=== PATIENT | female | born 1990 | race Caucasian/White ===

== ENCOUNTER 2019-06-25 11:09 | Inpatient (IN) | payer BC ==
[2019-06-25] MEDS ORDERED: LACTATED RINGERS 1,000 ML IV ONE (11:46)
[2019-06-25] MEDS ORDERED: CITRIC ACID-SODIUM CITRATE 15 ML CUP PO ONE (11:46)
[2019-06-25] MEDS ORDERED: PENICILLIN G POTASSIUM 5,000,000 UNIT in DEXTROSE 5% IN WATER 100 ML IVPB STA ×2 (11:47)
[2019-06-25] MEDS ORDERED: LACTATED RINGERS 1,000 ML IV SCH (12:00)
[2019-06-25 12:16] LABS: Basophils % (A) 0 %; Eosinophils # (A) 0.1 k/uL (0-0.7); Eosinophils % (A) 1 %; HCT 42.3 % (34.0-46.0); HGB 13.9 gm/dL (11.4-16.0); Lymphocytes # (A) 1.9 k/uL (1.0-4.8); Lymphocytes % (A) 16 %; MCHC 32.9 g/dL (31.0-37.0); MCV 88.1 fL (80.0-100.0); Mean Platelet Volume 8.8; Monocytes # (A) 0.7 k/uL (0-1.0); Monocytes % (A) 6 %; Neutrophils # (A) 9.1 k/uL (1.3-7.7); Neutrophils % (A) 76 %; Platelet Count 238 k/uL (150-450); RDW 14.7 % (11.5-15.5); WBC 11.9 k/uL (3.8-10.6)
--- NOTE | 2019-06-25 12:17 | P.HPOB ---
History of Present Illness H&P Date: 06/25/19 Chief Complaint: My water broke yesterday at noon. This is a 28-year-old white female 1 para 0 EDC 07/05/2019 at 38-4/7 weeks' gestation. Patient presents today stating her water has been leaking and trickling since yesterday at noon. She is having rare irregular contractions. Fetus is been active throughout the . Fetus was noted to be breech in the office yesterday on examination. Past medical history is significant for migraine headaches followed by Dr. Lisa in [facility]. She also has a history of asthma, exercise-induced. Past surgical history tonsillectomy and adenoidectomy in the past. Current medications vitamins daily. ALLERGIES codeine to which reports migraine headaches. Family history significant for asthma, acid reflux, hypertension. Social history patient is never been a smoker, she denies alcohol or drug use. She is , and works for [employer]. Obstetric history is significant for blood type a negative, broke and was received. Pap smear, urine culture, hepatitis B surface antigen, HIV testing, g onorrhea and chlamydia cultures all negative. Rubella status immune. Group B strep cultures positive. On exam this is a pleasant white female 5 foot 2 inches, 196 pounds, vital signs are stable and patient is afebrile. The general physical exam is within normal limits. Chest is clear in all palmer. Infant is still breech to Peyman's maneuver and bedside checked with the ultrasound. Cervix is 4 cm dilated, 90% effaced, -2 station, small parts presenting. heart rate is consistent with reactive NST. Impression: 38-4/7 weeks intrauterine , breech presentation, ruptured membranes for 24 hours. Plan: Anesthesia will not allow me to proceed with section until 8 hours of nothing by mouth status. Patient had yogurt, granola and an Apple at 8:30 AM. We will therefore proceed at 4:30 PM. The risks, benefits and alternatives are discussed in detail. All questions answered. Review of Systems Constitutional: Reports as per HPI Past Medical History Past Medical History: Asthma Past Surgical History: Adenoidectomy, Tonsillectomy Past Psychological History: No Psychological Hx Reported Smoking Status: Never smoker Past Alcohol Use History: None Reported Past Drug Use History: None Reported Medications and Allergies Home Medications Medication Instructions Recorded Confirmed Type Iron 18 mg PO DAILY 06/25/19 06/25/19 History Magnesium 200 mg PO DAILY 06/25/19 06/25/19 History Pnv,Calcium 72/Iron/Folic Acid 1 each PO DAILY 06/25/19 06/25/19 History [ Plus Tablet] Allergies Allergy/AdvReac Type Severity Reaction Status Date / Time codeine AdvReac Nausea & Verified 06/25/19 11:45 Vomiting Exam Intake and Output 06/24/19 06/25/19 06/25/19 22:59 06:59 14:59 Other: Weight 86.636 kg See dictation under HPI please Assessment and Plan Assessment: 38-4/7 weeks intrauterine , breech presentation, positive group B strep cultures, 24 hours of ruptured membranes noted. Plan: Penicillin G prophylaxis now. Continue nothing by mouth status. Planned primary low transverse section this afternoon. Time with Patient: Less than 30
[2019-06-25] MEDS ORDERED: ONDANSETRON 4 MG/2 ML VIAL ONE (16:29)
[2019-06-25] MEDS ORDERED: MORPHINE SULFATE (PF) 0.3 MG/0.3 ML SYR ONE (16:29)
[2019-06-25] MEDS ORDERED: KETOROLAC 30 MG/ML 1 ML VIAL ONE (16:29)
[2019-06-25] MEDS ORDERED: OXYTOCIN 10 UNIT/ML 1 ML VIAL ONE (16:29)
[2019-06-25] MEDS ORDERED: NALOXONE 0.4 MG/ML 1 ML VIAL IV PRN ×2 (16:40→17:20)
[2019-06-25] MEDS ORDERED: KETOROLAC 30 MG/ML 1 ML VIAL IVP PRN (16:40)
[2019-06-25] MEDS ORDERED: NALBUPHINE 10 MG/ML (1 ML AMP) IV PRN (16:40)
[2019-06-25] MEDS ORDERED: ONDANSETRON 4 MG/2 ML VIAL IVP PRN ×2 (16:40→17:20)
[2019-06-25] MEDS ORDERED: diphenhydrAMINE 50 MG/ML 1 ML VIAL IVP PRN ×3 (16:40→17:20)
[2019-06-25] MEDS ORDERED: MORPHINE SULFATE 2 MG/ML SYRINGE IVP PRN (16:40)
[2019-06-25] MEDS ORDERED: diphenhydrAMINE 50 MG CAP PO PRN (17:20)
[2019-06-25] MEDS ORDERED: ZOLPIDEM 5 MG TAB PO PRN (17:20)
[2019-06-25] MEDS ORDERED: diphenhydrAMINE 25 MG CAP PO PRN (17:20)
[2019-06-25] MEDS ORDERED: METOCLOPRAMIDE 5 MG/ML 2 ML VIAL IVP PRN (17:20)
--- NOTE | 2019-06-25 17:20 | P.OP ---
Date of Procedure: 06/25/19 Preoperative Diagnosis: 38-4/7 weeks, breech presentation, spontaneous amniorrhexis, meconium-stained fluid. Postoperative Diagnosis: Same, liveborn female . Normal-appearing tubes ovaries and uterine corpus. Procedure(s) Performed: Primary low transverse section Anesthesia: spinal Surgeon: Alyssa Huerta Railway Switch Operator #1: Florin Thorne Estimated Blood Loss (ml): 550 IV fluids (ml): 1,000 Urine output (ml): 100 Pathology: none sent Condition: stable Disposition: PACU Operative Findings: Liveborn female , scores 8 and 9, complete breech position. 7 lbs. 3 oz., 3260 g weight. Normal-appearing tubes and ovaries bilaterally. No uterine defects. Description of Procedure: Patient is brought to the operating suite where a spinal analgesia with Du ramorph is placed without difficulty per the anesthesia staff. The appropriate timeout is performed to assure proper patient and procedural identification. Group B strep cultures are noted to be positive, and penicillin G has Dipak been received, 2 doses 4 hours apart. Aldana catheter placed to direct drainage. The abdomen is prepped and draped in usual sterile fashion. The analgesia is checke d and noted to be adequate. A low transverse skin incision is made in this is carried down through the subcutaneous tissue to the fascia. Fascia is isolated, scored, extended bilaterally with curved Schulz scissors. Peritoneum is next identified and incised, there is no bowel or bladder involvement. The bladder blade is placed over the dome of the bladder and at all times the bladder is Well from the operative field to avoid bladder and/or ureteral injury. A low transverse uterine incision is made in this is carried down through the myometrium. Upon entering the endometrial cavity a large amount of meconium- stained fluid is encountered. The incision is extended with blunt dissection. The breech is brought into the incision, sacrum anterior. Pinard maneuver is used to deliver the lower extremities. A blue towel was wrapped around the 's trunk, and a Pinard maneuver is used to deliver both upper extremities. The infant's head is delivered in a flexed position. Officially delivered a liveborn female at 1643 hours. Umbilical cord is doubly clamped and ligated, she is handed to waiting nurses for evaluation where scores of 8 and 9 at one and 5 minutes respectively are given. The placenta is delivered manually, it is inspected and noted to be intact with trivascular cord at 1644 hours. At this time the uterus is externalized and massaged. Oxytocin is given. It is swept clean with a sterile sponge to avoid any retained products of conception. The edges of the uterine incision are grasped with Alvarado clamps and the uterus is closed in a two-step fashion. First layer is running locking with 0 Vicryl suture, second layer also with 0 Vicryl in an imbricated fashion for excellent reapproximation. Both tubes and ovaries appear normal to inspection. The uterus is brought forward and the abdomen is suctioned with suction on guard. Uterus is gently placed back into the abdominal cavity. Bilateral gutters are inspected and cleaned. Uterine incision is once again noted to be clean and dry. Peritoneum is allowed to close by secondary intention. Fascia is closed in a running stitch of 0 Vicryl with over ligation in the midline. Subcutaneous tissue is irrigated, noted to be clean and dry. It is reapproximated with 3-0 Vicryl in a running fashion. 4-0 undyed Monocryl is used for final skin closure. Steri-Strips and Mastisol are applied to the wound. The uterus is massaged for a small amount of bleeding. The wound is dressed appropriately. Aldana is noted to be draining clear urine. Patient is brought back to the recovery room in very good condition with stable vital signs including a pulse of 82, blood pressure 111/64. 's weight 3260 g or 7 lbs. 3 oz. Patient and her family are allowed to begin the bonding experience in the LDR.
[2019-06-25 18:09] LABS: Basophils % (A) 0 %; Eosinophils # (A) 0.1 k/uL (0-0.7); Eosinophils % (A) 0 %; HCT 37.3 % (34.0-46.0); HGB 12.3 gm/dL (11.4-16.0); Lymphocytes # (A) 1.8 k/uL (1.0-4.8); Lymphocytes % (A) 14 %; MCH 29.6 pg (25.0-35.0); MCV 89.5 fL (80.0-100.0); Mean Platelet Volume 9.2; Monocytes # (A) 0.6 k/uL (0-1.0); Monocytes % (A) 5 %; Neutrophils # (A) 10.3 k/uL (1.3-7.7); Neutrophils % (A) 79 %; Platelet Count 199 k/uL (150-450); RBC 4.17 m/uL (3.80-5.40); RDW 14.7 % (11.5-15.5)
[2019-06-25] MEDS ORDERED: PENICILLIN G POTASSIUM 2,500,000 UNIT in DEXTROSE 5% IN WATER 100 ML IVPB SCH ×2 (20:05)
[2019-06-25] MEDS: LACTATED RINGERS 1,000 ML IV SCH (21:05)
[2019-06-25] MEDS: SENNOSIDES-DOCUSATE SODIUM 1 EACH TAB PO SCH (21:05)
[2019-06-26] MEDS ORDERED: Rhogam IMMUNE GLOBULIN 1,500 UNIT/1 ML IM ONE (01:00)
[2019-06-26] MEDS: LACTATED RINGERS 1,000 ML IV SCH ×2 (01:05→23:16)
[2019-06-26] MEDS: KETOROLAC 30 MG/ML 1 ML VIAL IVP PRN ×2 (03:33→10:19)
[2019-06-26 06:57] LABS: Basophils % (A) 0 %; Eosinophils # (A) 0.1 k/uL (0-0.7); Eosinophils % (A) 0 %; HCT 36.7 % (34.0-46.0); HGB 12.2 gm/dL (11.4-16.0); Lymphocytes # (A) 2.3 k/uL (1.0-4.8); Lymphocytes % (A) 14 %; MCH 29.5 pg (25.0-35.0); MCHC 33.1 g/dL (31.0-37.0); Mean Platelet Volume 9.3; Monocytes # (A) 0.8 k/uL (0-1.0); Monocytes % (A) 5 %; Neutrophils # (A) 12.3 k/uL (1.3-7.7); Neutrophils % (A) 78 %; Platelet Count 233 k/uL (150-450); RBC 4.13 m/uL (3.80-5.40); RDW 14.7 % (11.5-15.5); WBC 15.7 k/uL (3.8-10.6)
[2019-06-26] MEDS: SENNOSIDES-DOCUSATE SODIUM 1 EACH TAB PO SCH ×2 (07:51→20:59)
--- NOTE | 2019-06-26 07:55 | P.PN ---
Subjective Progress Note Date: 06/26/19 Principal diagnosis: Postoperative day #1 Positive flatus, ambulating. Pain well controlled. No complaints Objective - Vital Signs Vital signs: Vital Signs Temp 98.8 F 06/26/19 04:00 Pulse 69 06/26/19 04:00 Resp 14 06/26/19 06:00 BP 116/67 06/26/19 04:00 Pulse Ox 98 06/25/19 18:09 Intake & Output 06/25/19 06/26/19 06/26/19 18:59 06:59 18:59 Output Total 800 Balance -800 Weight 86.636 kg Output: Urine 800 Uretheral (Aldana) 100 - Constitutional General appearance: Present: average body habitus, cooperative - EENT Eyes: Present: PERRLA ENT: Present: hearing grossly normal - Respiratory Respiratory: bilateral: CTA - Cardiovascular Rhythm: regular - Gastrointestinal General gastrointestinal: Present: normal bowel sounds - Integumentary Integumentary: Present: normal - Neurologic Neurologic: Present: CNII-XII intact - Musculoskeletal Musculoskeletal: Present: gait normal, strength equal bilaterally - Psychiatric Psychiatric: Present: A&O x's 3, appropriate affect, intact judgment & insight - Labs CBC & Chem 7: 06/26/19 06:38 Labs: Abnormal Lab Results - Last 24 Hours (Table) 06/25/19 06/25/19 06/26/19 Range/Units 11:56 17:53 06:38 WBC 11.9 H 13.0 H 15.7 H (3.8-10.6) k/uL Neutrophils # 9.1 H 10.3 H 12.3 H (1.3-7.7) k/uL Assessment and Plan Assessment: Doing well post operative day #1 Plan: Advance diet and activity. Continue postoperative care. Likely discharge home tomorrow. Time with Patient: Less than 30
--- NOTE | 2019-06-26 11:08 | P.PN ---
Progress Note - Text Progress Note Date: 06/26/19 Postop day 1 from under spinal anesthesia with intrathecal morphine given for postop pain management. Patient is doing well. Pain is well controlled. On visual analog scale 4/10 Mild itching present No nausea or vomiting reported. No Headache or weakness and numbness in the legs. No complications from spinal anesthesia.
[2019-06-26] MEDS: ACETAMINOPHEN TAB 325 MG TAB PO PRN (20:59)
[2019-06-27] MEDS: IBUPROFEN 600 MG TAB PO PRN ×3 (03:02→21:33)
[2019-06-27] MEDS: ACETAMINOPHEN TAB 325 MG TAB PO PRN ×2 (05:55→10:07)
--- NOTE | 2019-06-27 08:12 | P.PN ---
Subjective Progress Note Date: 06/27/19 Principal diagnosis: Postoperative day number two Slept well. Pain well managed. No complaints. Sachse needing to stay for antibiotic therapy, therefore patient electing to go home tomorrow. Objective - Vital Signs Vital signs: Vital Signs Temp 98.4 F 06/27/19 04:00 Pulse 77 06/27/19 04:00 Resp 18 06/27/19 04:00 BP 109/54 06/27/19 04:00 Pulse Ox 96 06/26/19 16:00 Intake & Output 06/26/19 06/27/19 06/27/19 18:59 06:59 18:59 Output Total 800 Balance -800 Output: Urine 800 Other: # Voids 2 2 - Constitutional General appearance: Present: average body habitus - EENT Eyes: Present: PERRLA ENT: Present: hearing grossly normal - Respiratory Respiratory: bilateral: CTA - Cardiovascular Rhythm: regular - Gastrointestinal General gastrointestinal: Present: normal bowel sounds - Integumentary Integumentary Comment(s): Incision clean and dry, intact, Steri-Strips applied. Fundus mobile, nontender, midline, 16-18 week size. Integumentary: Present: normal turgor - Neurologic Neurologic: Present: CNII-XII intact - Musculoskeletal Musculoskeletal: Present: gait normal, strength equal bilaterally - Psychiatric Psychiatric: Present: A&O x's 3, appropriate affect, intact judgment & insight - Labs CBC & Chem 7: 06/26/19 06:38 Assessment and Plan Assessment: Doing well postoperative day #2. Plan: Continue postoperative care. Likely discharge home tomorrow. Time with Patient: Less than 30
[2019-06-27] MEDS: SENNOSIDES-DOCUSATE SODIUM 1 EACH TAB PO SCH ×2 (10:07→21:33)
[2019-06-27] MEDS: HYDROcodone/APAP 5-325MG 1 EACH TAB PO PRN ×3 (14:33→23:14)
[2019-06-28 00:16] VITALS: RESP 16
[2019-06-28] MEDS: IBUPROFEN 600 MG TAB PO PRN (03:05)
[2019-06-28] MEDS: HYDROcodone/APAP 5-325MG 1 EACH TAB PO PRN ×2 (05:59→10:04)
--- NOTE | 2019-06-28 09:06 | P.DS ---
Providers Date of admission: 06/25/19 11:40 Expected date of discharge: 06/28/19 Attending physician: Alyssa Huerta Primary care physician: Stated None Hospital Course: This is a 28-year-old white female 1 para 0 EDC 07/05/2019 at 38-4/7 weeks' gestation. Patient presented with spontaneous amniorrhexis which occurred at home, known breech presentation. was otherwise unremarkable, blood type A-, rubella status immune. Group B strep cultures positive. Antibiotics were given. Please see dictated history and physical for details. Patient underwent a primary low transverse section and gave to a liveborn female infant with scores of 8 and 9 at one and 5 minutes respectively. Infant weighed 7 lbs. 3 oz. or 3260 g. Estimated blood loss 550 mL's. Please see dictated operative note for details. This morning the patient is doing well. She is voiding, ambulating, passing flatus without difficulty. Vital signs are stable and she is afebrile. Incision is clean and dry, intact, Steri-Strips applied. Fundus is firm, midline, symmetric, 18 week size. Extremities are negative for edema. [place] infant is doing well. Patient is judged to be in very good condition for discharge home. Patient will follow-up with me in the office in 2 weeks for incision check. She is reminded no intercourse, tampons or douching. She will use [id number] Advil or Aleve, or ibuprofen as needed for pain. She will call with any fevers shakes or chills, foul smelling or copious lochia, with the passage of large blood clots, with any pain not alleviated by [id number] products, or indeed with any concerns. infant will follow-up with roll panner as per recommendations. Patient Condition at Discharge: Good Plan - Discharge Summary Discharge Rx Participant: No New Discharge Prescriptions: No Action Pnv,Calcium 72/Iron/Folic Acid [ Plus Tablet] 1 each PO DAILY Magnesium 200 mg PO DAILY Iron 18 mg PO DAILY Discharge Medication List Iron 18 mg PO DAILY 06/25/19 [History] Magnesium 200 mg PO DAILY 06/25/19 [History] Pnv,Calcium 72/Iron/Folic Acid [ Plus Tablet] 1 each PO DAILY 06/25/19 [History] Follow up Appointment(s)/Referral(s): Alyssa Huerta MD [STAFF PHYSICIAN] - 2 Weeks
[2019-06-28] MEDS: SENNOSIDES-DOCUSATE SODIUM 1 EACH TAB PO SCH (10:04)
[2019-06-28 10:19] VITALS: BP 113/78; PULSE 85; TEMP 98.2
== END 2019-06-28 11:34 | disposition home or self-care (01) | DRG 787 ==
LOC: FBPOP 11:09 → 4FBP 11:40
PROVIDERS: ADMIT Obstetrics & Gynecology; ATTEND Obstetrics & Gynecology
PROC: 10D00Z1 Extraction of Products of Conception, Low, Open Approach (ICD-10-PCS; principal; 2019-06-25 16:30)
DX: O32.1XX0 Maternal care for breech presentation, not applicable or unspecified (principal); O99.354 Diseases of the nervous system complicating childbirth; O98.82 Other maternal infectious and parasitic diseases complicating childbirth; O99.52 Diseases of the respiratory system complicating childbirth; G43.909 Migraine, unspecified, not intractable, without status migrainosus; J45.909 Unspecified asthma, uncomplicated; B95.1 Streptococcus, group B, as the cause of diseases classified elsewhere; Z3A.38 38 weeks gestation of pregnancy; Z37.0 Single live birth; Z82.49 Family history of ischemic heart disease and other diseases of the circulatory system; Z82.5 Family history of asthma and other chronic lower respiratory diseases; Z88.5 Allergy status to narcotic agent; Z83.79 Family history of other diseases of the digestive system; O77.0 Labor and delivery complicated by meconium in amniotic fluid
CPT/HCPCS: 59025; 84112; 85025; 85461; 86850; 86870; 86880; 86900; 86901; 99213

== ENCOUNTER → 2021-09-02 | Outpatient (CLI) | payer BC | LOC: FBPOP 11:11 | PROVIDERS: ATTEND Obstetrics & Gynecology | DX: O26.893 Other specified pregnancy related conditions, third trimester (principal); R10.9 Unspecified abdominal pain; Z3A.31 31 weeks gestation of pregnancy | CPT/HCPCS: 59025; 99213 ==

== ENCOUNTER 2021-09-04 18:00 | Outpatient (CLI) | payer BC ==
[2021-09-04] MEDS: LACTATED RINGERS 1,000 ML IV SCH ×2 (19:00→19:45)
[2021-09-04] MEDS ORDERED: ACETAMINOPHEN TAB 500 MG TAB PO STA (19:02)
[2021-09-04 19:06] LABS: Basophils % (A) 1 %; Eosinophils # (A) 0.1 k/uL (0-0.7); Eosinophils % (A) 1 %; HCT 35.7 % (34.0-46.0); HGB 11.5 gm/dL (11.4-16.0); Lymphocytes # (A) 1.3 k/uL (1.0-4.8); Lymphocytes % (A) 26 %; MCH 28.3 pg (25.0-35.0); MCHC 32.3 g/dL (31.0-37.0); MCV 87.6 fL (80.0-100.0); Mean Platelet Volume 8.2; Monocytes # (A) 0.4 k/uL (0-1.0); Monocytes % (A) 8 %; Neutrophils % (A) 60 %; Platelet Count 231 k/uL (150-450); RBC 4.08 m/uL (3.80-5.40); RDW 13.9 % (11.5-15.5)
[2021-09-04 19:13] LABS: African American GFR (CKD) >90 (>60 ml/min/1.73 sqM); Anion Gap 4 mmol/L; Blood Urea Nitrogen 9 mg/dL (7-17); Calcium 7.6 mg/dL (8.4-10.2); Carbon Dioxide 22 mmol/L (22-30); Chloride 108 mmol/L (98-107); Glucose 90 mg/dL (74-99); Non-African American GFR(CKD) >90 (>60 ml/min/1.73 sqM); Potassium 3.2 mmol/L (3.5-5.1); Sodium 134 mmol/L (137-145)
[2021-09-04 19:16] LABS: Appearance,Urine Cloudy (Clear); Bilirubin,Urine 1+ (Negative); Blood,Urine Negative (Negative); Color,Urine Dark Yellow; Glucose,Urine (UA) Negative (Negative); Ketones,Urine Trace (Negative); Leukocyte Esterase,Urine Large (Negative); Mucus,Urine Many /hpf; Nitrite,Urine Negative (Negative); Protein,Urine 1+ (Negative); RBC,Urine 1 /hpf (0-5); Specific Gravity,Urine 1.041 (1.001-1.035); Squamous Epithelial Cell,Urine 9 /hpf (0-4); WBC,Urine 13 /hpf (0-5)
[2021-09-04] MEDS ORDERED: POTASSIUM CHLORIDE 20 MEQ in WATER FOR INJECTION 1 100ML.BAG IVPB STA (19:27)
[2021-09-04] MEDS ORDERED: ACETAMINOPHEN IV (For NPO) 1,000 MG in EMPTY BAG 1 BAG IVPB ONE (19:29)
--- NOTE | 2021-09-04 22:19 | US ---
EXAMINATION TYPE: US OB >= 14 wk fetus DATE OF EXAM: 09/04/2021 COMPARISON: None CLINICAL HISTORY: Right ABD pain Pt states right side ABD pain, denies bleeding TECHNIQUE: Transabdominal (TA) GESTATIONAL AGE / DATING Physician Established: (31 weeks/5 days) EDC: 11/01/2021 Dates by LMP: (31 weeks/5 days) EDC: 11/01/2021 Dates by First Scan: No previous this is first scan Dates by Current Scan: (32 weeks/2 days) EDC: 10/28/2021 SURVEY IUP: Single PLACENTA: Anterior & Fundal PREVIA: No Previa ANURAG: 15.2 cm Normal CERVICAL LENGTH (transabdominal: norm > 3.0cm): 3.5 cm BIOMETRY PRESENTATION: Vertex BPD: 8.3 cm 33 weeks / 4 days HC: 29.5 cm 32 weeks / 5 days AC: 27.9 cm 32 weeks / 0 days FL: 5.9 cm 30 weeks / 6 days ESTIMATED WEIGHT IN GRAMS: 1834 grams ESTIMATED WEIGHT IN LBS/OZ: 4 lbs. 1 oz. WEIGHT PERCENTAGE BASED ON ESTABLISHED DATES: 40% HC/AC: 1.06 Normal FL/AC: 21 Normal HEART RATE: 119 bpm RHYTHM: Normal Single, viable IUP/ No abnormality visualized at this time to account for pt's pain. Results give n to Dr. Huerta at time of exam IMPRESSION: The ultrasound gestational age is 32 weeks and 2 days. No complicating process seen.
[2021-09-04 22:36] VITALS: BP 120/81; PULSE 71; RESP 16; TEMP 97.8
--- NOTE | 2021-09-06 08:04 | P.MSEPDOC ---
Presenting Problems - Arrival Data Date of Arrival on Unit: 09/04/21 Time of Arrival on Unit: 18:00 Mode of Transport: Portable - Complaint OB-Reason for Admission/Chief Complaint: Pain Comment: pt to triage stating she was here a couple days ago with abd pain, at that time. was her whole abd, states pain is worse but more right sided, constant and going into. her back. pt. states pain /10 Medical History - Information : 2 Para: 1 Term: 1 : 0 Abortions: Spontaneous or Elective: 0 Number of Living Children: 1 - Gestational Age Gestational Age by GINETTE (wks/days): 31 Weeks and 5 Days - History Complications: Prior Review of Systems - Review of Systems Constitutional: No problems Breast: No problems ENT: No problems Cardiovascular: No problems Respiratory: No problems Gastrointestinal: No problems, Diarrhea Genitourinary: No problems Musculoskeletal: No problems Neurological: No problems Skin: No problems Vital Signs - Temperature Temperature: 97.8 F Temperature Source: Temporal Artery Scan - Pulse Pulse Oximetery Pulse Rate: 71 Pulse Assessment Method: Automatic Cuff - Respirations Respiratory Rate: 16 Oxygen Delivery Method: Room Air O2 Sat by Pulse Oximetry: 97 - Blood Pressure Right Arm Blood Pressure: 120/81 Blood Pressure Mean: 94 Blood Pressure Source: Automatic Cuff Medical Screen Scoring - Assessment - Baby A Baseline FHR: 115 Heart Rate - NICHD Category: Category I (Normal) NST: Reactive Physician Notification - Physician Notified Physician Notified Date: 09/04/21 Physician Notified Time: 21:49 Physician: Alyssa Huerta New Order Received: Yes (labs and urine sent, meds ordered, and ultrsound) - Notification Comment Comment: labs reviewed, and meds given 2 Liters of LR given, potassium 20meg, tylenol extra strength 1,000mg and omfermiv 1,00mg given for pain, Dr. Huerta calling in [employer] to pharmacy for patient to seed cone picker, pt. is going to be on 500mg 1 tab BID for 7days, UA sent for C&S, ultrasound reviewed, orders to discharge patient home and pt. will follow up in office as [facility] on mondayseptember 08. Maternal Triage Index - Maternal Triage Index Presenting for scheduled procedure w/no complaint: No - Stat/Priority 1 Stat Priority 1: No - Urgent/Priority 2 Urgent Priority 2: Yes Provider Notified: Alyssa Huerta Provider Notified Time: 18:37 Criteria Met for Priority 2: right ABD pain that goes to right back/flank area 11/17, pt. is 31 weeks and 5 days Disposition - Disposition OB Disposition: Physician follow up in office, Discharge to home Discharge Date: 09/04/21 Discharge Time: 22:36 I agree with the RN Medical Screening Exam: Yes Case reviewed; plan agreed upon as documented in EMR&OBIX.: Yes Diagnosis: UNSPECIFIED ABDOMINAL PAIN
== END 2021-09-04 22:36 | disposition home or self-care (01) ==
LOC: FBPOP 18:00
PROVIDERS: ATTEND Obstetrics & Gynecology
DX: O26.893 Other specified pregnancy related conditions, third trimester (principal); R10.9 Unspecified abdominal pain; Z3A.31 31 weeks gestation of pregnancy
CPT/HCPCS: 59025; 99214; 96361; 96365; 96366; 96367; 80048; 85025; 81001; 87086; 76805; J3480; J0131

== ENCOUNTER 2021-10-25 09:45 | Inpatient (IN) | payer BC ==
[2021-10-25] MEDS ORDERED: LACTATED RINGERS 1,000 ML IV ONE (10:10)
[2021-10-25] MEDS ORDERED: CITRIC ACID-SODIUM CITRATE 15 ML CUP PO ONE (10:10)
[2021-10-25 10:31] LABS: Basophils % (A) 0 %; Eosinophils # (A) 0.1 k/uL (0-0.7); Eosinophils % (A) 1 %; HCT 38.6 % (34.0-46.0); HGB 12.6 gm/dL (11.4-16.0); Lymphocytes % (A) 18 %; MCH 28.8 pg (25.0-35.0); MCHC 32.7 g/dL (31.0-37.0); MCV 88.1 fL (80.0-100.0); Mean Platelet Volume 9.3; Monocytes # (A) 0.6 k/uL (0-1.0); Monocytes % (A) 5 %; Neutrophils # (A) 8.7 k/uL (1.3-7.7); Neutrophils % (A) 75 %; Platelet Count 215 k/uL (150-450); RBC 4.38 m/uL (3.80-5.40); RDW 14.8 % (11.5-15.5); WBC 11.5 k/uL (3.8-10.6)
[2021-10-25] MEDS: LACTATED RINGERS 1,000 ML IV SCH ×4 (11:31→21:34)
[2021-10-25] MEDS ORDERED: MORPHINE SULFATE (PF) 0.3 MG/0.3 ML SYR ONE (11:58)
[2021-10-25] MEDS ORDERED: KETOROLAC 15 MG/ML 1 ML VIAL ONE (11:58)
[2021-10-25] MEDS ORDERED: OXYTOCIN 10 UNIT/ML 1 ML VIAL ONE (11:58)
[2021-10-25] MEDS ORDERED: ONDANSETRON 4 MG/2 ML VIAL ONE (11:58)
[2021-10-25] MEDS ORDERED: NALBUPHINE 10 MG/ML (1 ML AMP) ONE (11:58)
--- NOTE | 2021-10-25 12:01 | P.HPOB ---
History of Present Illness H&P Date: 10/25/21 Chief Complaint: Here for repeat section This is a 30-year-old female 2 para 1001 EDC 11/01/2021 at 39 weeks gestation who presents today for repeat low transverse section. She has had a previous section and is declining option for . is essentially unremarkable, fetus is been active. Past medical history is significant for anxiety and depression, asthma, migraine headaches, ADHD. Past surgical history adenoidectomy and tonsillectomy, section 2019. Current medications vitamin D, exercise Tylenol as needed, vitamin daily. ALLERGIES include codeine to which reports migraine headaches. Family history significant for asthma, hypertension, acid reflux disease. Social history patient is , she works for [employer], she denies alcohol tobacco or drug use. history blood type is A-, rubella status immune. Pap smear, urine culture, hepatitis B surface antigen, HIV testing, gonorrhea and chlamydia cultures all negative. Group B strep cultures negative. One-hour Glucola 127. On exam patient is 5 foot 3 inches, 190 pounds, blood pressure 123/81. The general physical exam is within normal limits. heart rate is consistent with reactive NST. Extremities reveal no edema. Chest is clear in all palmer. Routine admit labs are all within normal limits. Impression: 39 week intrauterine , previous section, declining option for . Here for repeat low transverse section. All signs reassuring. Plan: For repeat low transverse section. Antibiotics had been given. All questions answered. Review of Systems Constitutional: Reports as per HPI Past Medical History Past Medical History: Asthma Additional Past Medical History / Comment(s): sport induced childhood asthma History of Any Multi-Drug Resistant Organisms: None Reported Past Surgical History: Adenoidectomy, Tonsillectomy Past Anesthesia/Blood Transfusion Reactions: No Reported Reaction Past Psychological History: No Psychological Hx Reported Smoking Status: Never smoker Past Alcohol Use History: None Reported Past Drug Use History: None Reported - Past Family History Father Family Medical History: No Reported History Medications and Allergies Home Medications Medication Instructions Recorded Confirmed Type Vit No.180/Iron/Folic 1 each PO DAILY 06/25/19 10/25/21 History [ Plus Tablet] Ergocalciferol [Vitamin D2 (1250 1,250 mcg PO WEEKLY 09/04/21 10/25/21 History Mcg = [id number] Iu)] Aspirin 1 tab PO DAILY 10/25/21 10/25/21 History Allergies Allergy/AdvReac Type Severity Reaction Status Date / Time codeine AdvReac Nausea & Verified 09/04/21 18:08 Vomiting Exam Vital Signs Temp Pulse Resp BP Pulse Ox 10/25/21 10:12 96.6 F L 67 16 123/81 99 Intake and Output 10/24/21 10/25/21 10/25/21 22:59 06:59 14:59 Other: Weight 86.183 kg Per dictation please Results Result Diagrams: 10/25/21 10:15 Abnormal Lab Results - Last 24 Hours (Table) 10/25/21 Range/Units 10:15 WBC 11.5 H (3.8-10.6) k/uL Neutrophils # 8.7 H (1.3-7.7) k/uL Assessment and Plan Assessment: 39 week intrauterine , here for repeat low transverse section, unremarkable, declining option for . Plan: Antibiotics have been given. For repeat low transverse section at this time. All questions answered. All labs normal, all signs reassuring. Time with Patient: Less than 30
[2021-10-25] MEDS ORDERED: diphenhydrAMINE 50 MG/ML 1 ML VIAL IVP PRN ×2 (12:54)
[2021-10-25] MEDS ORDERED: diphenhydrAMINE 25 MG CAP PO PRN (12:54)
[2021-10-25] MEDS ORDERED: ONDANSETRON 4 MG/2 ML VIAL IVP PRN (12:54)
[2021-10-25] MEDS ORDERED: ZOLPIDEM 5 MG TAB PO PRN (12:54)
[2021-10-25] MEDS ORDERED: METOCLOPRAMIDE 5 MG/ML 2 ML VIAL IVP PRN (12:54)
[2021-10-25] MEDS ORDERED: SIMETHICONE 80 MG CHEWABLE PO PRN (12:54)
[2021-10-25] MEDS ORDERED: diphenhydrAMINE 50 MG CAP PO PRN (12:54)
[2021-10-25] MEDS ORDERED: NALOXONE 0.4 MG/ML 1 ML VIAL IV PRN (12:54)
--- NOTE | 2021-10-25 12:54 | P.OP ---
Date of Procedure: 10/25/21 Preoperative Diagnosis: 39 week intrauterine , previous section, declining Postoperative Diagnosis: Same, liveborn male , nuchal cord 1, dense abdominal and pelvic adhesions Procedure(s) Performed: Repeat low transverse section Anesthesia: spinal Surgeon: Alyssa Huerta Molding Associate #1: Elaina Sorenson Estimated Blood Loss (ml): 516 IV fluids (ml): 800 Urine output (ml): 300 Pathology: none sent Condition: stable Disposition: PACU Operative Findings: Abdominal adhesions involving the abdominal wall, facia, peritoneum along with the uterine serosa. Description of Procedure: Patient is brought to the operating suite where a spinal analgesia with Duramorph is administered without difficulty. Antibiotics are given. Aldana catheter to direct drainage. She's placed in the dorsal supine position with left lateral uterine displacement. The appropriate timeout is performed to assure proper patient and procedural identification after the abdomen is prepped and draped in usual sterile fashion. The analgesia is checked and noted to be adequate. A repeat low transverse skin incision is made in this is carried down through the subcutaneous tissue which is only approximately 2 cm in depth. The fascia is isolated, scored, extended bilaterally with curved Schulz scissors. It is difficult to enter the peritoneal cavity as there are dense adhesions involving the peritoneum with the anterior uterine serosa. The bladder flap however is created and at all times the bladder is Well from the operative field to avoid bladder and/or ureteral injury. A low transverse uterine incision is made in this is carried down through the myometrium. Artificial amniorrhexis reveals light meconium-stained fluid. The 's head is delivered easily, the oropharynx, nasopharynx, and external nares are bulb suctioned. There is a nuchal cord 1 that was easily reduced. Patient is officially delivered of a liveborn male infant at 1217 hrs. Umbilical cord is doubly clamped and ligated, he is handed to waiting nurses for evaluation where scores of 9 and 9 at one and 5 minutes respectively are given. The placenta is delivered manually, it is inspected and noted to be intact with trivascular cord at 1218 hrs. The uterus is not able to be delivered, and therefore it is swept clean with a sterile sponge and the edges are grasped with Alvarado clamps. Uterus is closed in a two-step fashion, first layer running locking, second layer imbricated, both with 0 Vicryl suture. Tubes and ovaries are not able to be visualized. Hemostasis is good, the surgical "snow" is placed for excellent hemostasis. Subcutaneous tissue is irrigated, clean and dry. It is reapproximated with 3-0 Vicryl in a running fashion. 4-0 undyed Monocryl is used subcuticularly for final skin closure. Steri-Strips and Mastisol are applied to the wound. The uterus is massaged for a small amount of blood. Total estimated blood loss 516 mL, urine is noted to be draining clear in the tube, 300 mL total. Fluid replacement 800 mL's. Patient is brought back to the recovery room in very good condition with stable vital signs including blood pressure 104/60, pulse 71, 97% O2 saturation. Patient is requesting circumcision for her infant son.
[2021-10-25 13:50] VITALS: RESP 16
[2021-10-25] MEDS: ACETAMINOPHEN TAB 500 MG TAB PO SCH ×2 (16:33→21:34)
[2021-10-25] MEDS: IBUPROFEN 600 MG TAB PO SCH (18:58)
[2021-10-25] MEDS: SENNOSIDES-DOCUSATE SODIUM 1 EACH TAB PO SCH (19:43)
[2021-10-25] MEDS ORDERED: Rhogam IMMUNE GLOBULIN 1,500 UNIT/1 ML IM ONE (19:46)
[2021-10-26] MEDS: IBUPROFEN 600 MG TAB PO SCH ×5 (03:16→23:39)
[2021-10-26] MEDS: LACTATED RINGERS 1,000 ML IV SCH ×4 (03:16→13:46)
[2021-10-26] MEDS: ACETAMINOPHEN TAB 500 MG TAB PO SCH ×4 (04:21→20:43)
[2021-10-26 07:33] LABS: Basophils % (A) 0 %; Eosinophils # (A) 0.2 k/uL (0-0.7); Eosinophils % (A) 1 %; HCT 39.8 % (34.0-46.0); HGB 12.4 gm/dL (11.4-16.0); Lymphocytes # (A) 1.4 k/uL (1.0-4.8); Lymphocytes % (A) 11 %; MCH 27.7 pg (25.0-35.0); MCHC 31.1 g/dL (31.0-37.0); MCV 89.2 fL (80.0-100.0); Mean Platelet Volume 9.4; Monocytes # (A) 0.6 k/uL (0-1.0); Monocytes % (A) 5 %; Neutrophils % (A) 83 %; Platelet Count 210 k/uL (150-450); RBC 4.46 m/uL (3.80-5.40); RDW 14.9 % (11.5-15.5); WBC 13.3 k/uL (3.8-10.6)
--- NOTE | 2021-10-26 08:29 | P.PN ---
Progress Note - Text Progress Note Date: 10/26/21 The patient is doing well postoperative day #1 status post under spinal anesthesia and intrathecal Duramorph. The patient denies any paresthesia or weakness in the lower extremities she also denies any back pain or headache. She complains of mild itching that is improving. Her pain is tolerable.
[2021-10-26] MEDS: SENNOSIDES-DOCUSATE SODIUM 1 EACH TAB PO SCH ×2 (09:09→20:44)
--- NOTE | 2021-10-26 09:17 | P.PN ---
Subjective Progress Note Date: 10/26/21 Principal diagnosis: Doing well postoperative day #1 Slept well. Positive flatus. Voiding about issue. Minimal pain Objective - Vital Signs Vital signs: Vital Signs Temp 97.8 F 10/26/21 04:00 Pulse 69 10/26/21 04:00 Resp 16 10/26/21 04:00 BP 95/60 10/26/21 04:00 Pulse Ox 98 10/26/21 04:00 FiO2 Intake & Output 10/25/21 10/26/21 10/26/21 18:59 06:59 18:59 Intake Total 75 360 Output Total 703 700 Balance -628 -340 Weight 86.183 kg Intake: Oral 75 360 Output: Urine 100 700 Uretheral ([place]) 400 Output, Quantitative 603 Blood Loss Other: # Voids 1 - Constitutional General appearance: Present: average body habitus, cooperative - EENT Eyes: Present: PERRLA ENT: Present: hearing grossly normal - Respiratory Respiratory: bilateral: CTA - Cardiovascular Rhythm: regular - Gastrointestinal Gastrointestinal Comment(s): Fundus firm, midline, symmetric, 18 week size. Incision clean, dry, intact, Steri-Strips applied. - Integumentary Integumentary: Present: normal - Neurologic Neurologic: Present: CNII-XII intact - Musculoskeletal Musculoskeletal: Present: gait normal, strength equal bilaterally - Psychiatric Psychiatric: Present: A&O x's 3, appropriate affect, intact judgment & insight - Labs CBC & Chem 7: 10/26/21 07:08 Labs: Abnormal Lab Results - Last 24 Hours (Table) 10/25/21 10/26/21 Range/Units 10:15 07:08 WBC 11.5 H 13.3 H (3.8-10.6) k/uL Neutrophils # 8.7 H 11.0 H (1.3-7.7) k/uL Assessment and Plan Assessment: Doing well first postoperative day Plan: Circumcision now. Continue postoperative care. Likely discharge home tomorrow. Time with Patient: Less than 30
[2021-10-27] MEDS: ACETAMINOPHEN TAB 500 MG TAB PO SCH ×2 (05:02→10:03)
[2021-10-27] MEDS: IBUPROFEN 600 MG TAB PO SCH (06:22)
--- NOTE | 2021-10-27 07:33 | P.DS ---
Providers Date of admission: 10/25/21 09:45 Expected date of discharge: 10/27/21 Attending physician: Alyssa Huerta Primary care physician: Stated None Hospital Course: This is a 30-year-old female 2 para 1001 at 39 weeks gestation who presented for repeat low transverse section, declining tubal ligation, declining . Her is unremarkable, group B strep cultures negative, rubella status immune, blood type A negative. Please see dictated history and physical for details. Patient underwent a repeat low transverse section giving to a liveborn male infant with scores of 9 and 9 at one and 5 minutes respectively. Infant weighed 6 lbs. 14 oz. or 3110 g. Steri-Strips and Mastisol were applied to the subcuticular closure on the wound. There was a nuchal cord 1, please see my dictated operative note for details. This morning the patient is doing well. She is voiding, ambulating, passing flatus without difficulty. Vital signs are stable and she is afebrile. Fundus is firm and in the midline, symmetric and 18 week size. Extremities are negative for edema. Chest is clear in all palmer. infant is doing well, circumcision has been performed. Patient is judged to be in excellent condition for discharge home. She will follow-up with me in the office in 2 weeks for incision check. She is reminded no intercourse, tampons or douching. She will use [id number] Advil or Aleve, or Motrin as needed for pain. She will call with any fevers shakes or chills, foul smelling or copious lochia, with the passage of large blood clots, with any pain not alleviated by [id number] products, or indeed with any concerns. Assessment: Doing well second postoperative day Patient Condition at Discharge: Good Plan - Discharge Summary Discharge Rx Participant: No New Discharge Prescriptions: No Action Vit No.180/Iron/Folic [ Plus Tablet] 1 each PO DAILY Aspirin 1 tab PO DAILY Ergocalciferol [Vitamin D2 (1250 Mcg = 73752 Iu)] 1,250 mcg PO WEEKLY Discharge Medication List Vit No.180/Iron/Folic [ Plus Tablet] 1 each PO DAILY 06/25/19 [History] Ergocalciferol [Vitamin D2 (1250 Mcg = 93315 Iu)] 1,250 mcg PO WEEKLY 09/04/21 [History] Aspirin 1 tab PO DAILY 10/25/21 [History] Follow up Appointment(s)/Referral(s): Alyssa Huerta MD [STAFF PHYSICIAN] - 2 Weeks Discharge Disposition: HOME SELF-CARE
[2021-10-27 08:45] VITALS: BP 129/85; PULSE 85; TEMP 97.8
[2021-10-27] MEDS: SENNOSIDES-DOCUSATE SODIUM 1 EACH TAB PO SCH (08:50)
== END 2021-10-27 10:10 | disposition home or self-care (01) | DRG 787 ==
LOC: 4FBP 09:45
PROVIDERS: ADMIT Obstetrics & Gynecology; ATTEND Obstetrics & Gynecology
PROC: 4A0HXCZ Measurement of Products of Conception, Cardiac Rate, External Approach (ICD-10-PCS; 2021-10-25)
PROC: 10D00Z1 Extraction of Products of Conception, Low, Open Approach (ICD-10-PCS; principal; 2021-10-25 12:00)
DX: O34.211 Maternal care for low transverse scar from previous cesarean delivery (principal); O99.354 Diseases of the nervous system complicating childbirth; O69.81X0 Labor and delivery complicated by cord around neck, without compression, not applicable or unspecified; G43.909 Migraine, unspecified, not intractable, without status migrainosus; J45.909 Unspecified asthma, uncomplicated; O77.0 Labor and delivery complicated by meconium in amniotic fluid; O26.893 Other specified pregnancy related conditions, third trimester; F90.9 Attention-deficit hyperactivity disorder, unspecified type; O99.52 Diseases of the respiratory system complicating childbirth; F32.A Depression, unspecified; N73.6 Female pelvic peritoneal adhesions (postinfective); O99.892 Other specified diseases and conditions complicating childbirth; Z37.0 Single live birth; Z3A.39 39 weeks gestation of pregnancy; Z67.11 Type A blood, Rh negative; Z79.82 Long term (current) use of aspirin; Z82.49 Family history of ischemic heart disease and other diseases of the circulatory system; Z82.5 Family history of asthma and other chronic lower respiratory diseases; Z88.5 Allergy status to narcotic agent
CPT/HCPCS: 85025; 85461; 86850; 86900; 86901

== ENCOUNTER → 2021-11-25 | Outpatient (CLI) | payer BC ==
--- NOTE | 2021-11-25 12:04 | P.SLEEP ---
History of Present Illness DATE: 11/25/2021 CONSULTATION/NEW PATIENT EVALUATION HISTORY OF PRESENT ILLNESS/SLEEP-WAKE EVALUATION: 31 year old lady had been evaluated in the sleep center for 4 significant excessive daytime sleepiness which she believes goes for all her life. SLEEP SCHEDULE: Usually sleep schedule on weekdays from 9 PM to 6 AM, during ays off from 99:30 PM to 6 AM. FALLING ASLEEP: Usually no problems with falling asleep, although patient used to read in bedroom. DURING SLEEP: No history of snoring. No history of nocturia. Sometimes positive history of vivid dreams. No history of hypnogogical hallucinations, sleep paralysis, or cataplexy. Patient may sleep for more than 12 hours. No significant movements during the sleep. DURING THE DAY/WAKE STATE: In the morning patient wake up tired, has difficulties to pay attention, falling asleep during the day. Positive history of problems with memory, concentration, irritability. [place] sleepiness scale is in a very high range of 22. Patient may take several naps during the day. Positive history of vivid dreams during naps. PAST MEDICAL HISTORY: Depression, anxiety. PAST SURGICAL HISTORY: Tonsillectomy, adenoidectomy, . MEDICATIONS: And Effexor XR 150 mg once a day, Wellbutrin 150 mg once a day, Xanax 0.25 mg as needed, vitamin D. SOCIAL HISTORY: Negative for smoking, alcohol consumption occasional. FAMILY HISTORY: Hypertension, sleep apnea, asthma. REVIEW OF SYSTEMS: Significant excessive daytime sleepiness. No fevers. No double vision. No recent chest pain. No shortness of breath. No abdominal pain. No bleeding episodes. No blood in urine. No seizure episodes. PHYSICAL EXAMINATION: GENERAL: A pleasant patient without any distress. VITAL SIGNS: BP 116/78 , HR 67 , RR 14 , weight 163.4 pounds, height 5 foot 3 inches, body mass index 28.8 . HEENT: PERRLA, EOMI. Evaluation of oropharynx showed tongue protrudes midline, low position of soft palate Mallampati 3. NECK: Supple. No JVD. Thyroid is not palpable. 13-1/2 inches in circumference. LUNGS: Clear to percussion and to auscultation. Good air exchange. No wheezing or rhonchi. HEART: S1, S2 regular. No murmurs, gallops or rubs. ABDOMEN: Soft and nontender. Bowel sounds are present. No organomegaly appreciated. EXTREMITIES: No clubbing or cyanosis. SALESPERSON NECKTIES: Awake, alert, and oriented x3. Cranial nerves 2 to 7 intact. There is no fasciculation or atrophy noted. No focal deficits observed. ASSESSMENT: 1. Significant excessive daytime sleepiness [place] Sleepiness Scale is 22. Patient may sleep for more than 12 hours. Differential diagnosis showed include narcolepsy without cataplexy and idiopathic hypersomnia. 2. Low position of soft palate, family history of sleep apnea. Rule out obstructive sleep apnea hypopnea syndrome, although patient does not snore. 3 history of depression. 4. History of anxiety. 5 status post tonsillectomy and adenoidectomy. 6. Status post . 7. Overweight body mass index 28.8. PLAN: 1. Polysomnography with fallowing multiple sleep latency test. 2. Following plan after reviewing results of sleep study 3. Preferable position during sleep on the side. 4. No driving if patient feels any sleepiness. Patient is aware of civil and criminal liability for unsafe driving. 5. Sleep hygiene with regular sleep time for at least 7.5-8 hours. 6. Watching weight. Thank you very much for referring this patient for consultation. Sincerely, Dino Palacios MD, PhD, FAASM. Diplomat of [place] [employer], Sleep Medicine Board by [place] [employer] [place] [employer] Museum Curator of [facility] Past Medical History Past Medical History: Asthma Additional Past Medical History / Comment(s): sport induced childhood asthma History of Any Multi-Drug Resistant Organisms: None Reported Past Surgical History: Adenoidectomy, Tonsillectomy Past Anesthesia/Blood Transfusion Reactions: No Reported Reaction Past Psychological History: No Psychological Hx Reported Smoking Status: Never smoker Past Alcohol Use History: None Reported Past Drug Use History: None Reported - Past Family History Father Family Medical History: No Reported History Medications and Allergies Home Medications Medication Instructions Recorded Confirmed Type Vit No.180/Iron/Folic 1 each PO DAILY 06/25/19 10/25/21 History [ Plus Tablet] Ergocalciferol [Vitamin D2 (1250 1,250 mcg PO WEEKLY 09/04/21 10/25/21 History Mcg = 59656 Iu)] Aspirin 1 tab PO DAILY 10/25/21 10/25/21 History Allergies Allergy/AdvReac Type Severity Reaction Status Date / Time codeine AdvReac Nausea & Verified 09/04/21 18:08 Vomiting Sleep Note - Sleep Note Sleep Note: Temperature: Pulse Rate: Respiratory Rate: Blood Pressure: SpO2: Height: Weight: BMI: Neck Circumference:
== END ==
LOC: SLEEP 11:08
PROVIDERS: ATTEND Internal Medicine
DX: G47.10 Hypersomnia, unspecified (principal); F32.A Depression, unspecified; Z90.09 Acquired absence of other part of head and neck; Z87.59 Personal history of other complications of pregnancy, childbirth and the puerperium; E66.3 Overweight; Z68.28 Body mass index [BMI] 28.0-28.9, adult; F41.9 Anxiety disorder, unspecified; Z88.5 Allergy status to narcotic agent
CPT/HCPCS: 99211

== ENCOUNTER → 2022-01-06 | Outpatient (CLI) | payer BC ==
--- NOTE | 2022-01-06 11:24 | P.PN ---
Subjective DATE: 01/06/2022 FOLLOW UP VISIT. Patient returned to sleep center for follow-up visit to discuss results of sleep study and following plan. Patient had polysomnogram and multiple sleep latency test. I discussed results of sleep studies. Patient in details. Polysomnogram did not show any significant respiratory abnormalities during sleep. Normal oxygenation during the sleep. No periodic limb movements have been documented. EKG showed premature ventricular contraction with some episodes of bigeminy. . Multiple sleep latency test done on the following day, consisted from 5 naps, mean sleep latency 11.4 minutes, no sleep onset REM periods have been documented. Sleep latency is borderline, not in the range for narcolepsy or id iopathic hypersomnia. Absence of REM sleep during naps also against possibility of narcolepsy. MEDICATIONS:1. Effexor X R 150 mg once a day 2. Wellbutrin 150 mg once a day 3. Xanax 0.25 mg as needed 4. Vitamin D During physical exam: GENERAL: A pleasant patient without any distress. VITAL SIGNS: BP 116/80, HR 85, RR 16 , weight 163, temperature 97.1, oxygen saturation at room air 99% . HEENT: PERRLA, EOMI. NECK: Supple. No JVD. LUNGS: Clear to percussion and to auscultation. Good air exchange. No wheezing or rhonchi. HEART: S1, S2 regular. ABDOMEN: Soft and nontender. EXTREMITIES: No clubbing or cyanosis. SLIDE MACHINE TENDER: Awake, alert, and oriented x3. No focal deficit. Impressions: 1. No significant respiratory abnormalities during sleep. Normal oxygenation during sleep. 2. No periodic limb movements have been documented during the sleep.. 3. Episodes of bigeminy have been documented during the sleep study on EKG.. 4. Results of multiple sleep latency test are borderline, did not showed significant sleepiness excluding narcolepsy or idiopathic hypersomnia, although results of multiple sleep latency test may have some variability. Patient continued to feel sleepiness during the day. 5. History of depression. 6. History of anxiety. 7. Status post tonsillectomy and adenoidectomy. 8. Status post . Plan: 1. Consider evaluation by pharmacy stock clerk for cardiac arrhythmia. 2. Sleep hygiene with regular time in bed for at least 8 hours. 3. Medications for improving alertness may have some negative for effects on heart. We will not start this type of medications at the present time 4. Precautions related to driving. No driving if feel any sleepiness. Patient is aware about civil and criminal liability for unsafe driving, promised to follow recommendations. 5. Follow up visit in 4-6 months or earlier if patient has any problems. 6. Patient is on several medications which could be related to daytime sleepiness. Consider possibly to change timing of taking medications. Thank you very much for allowing me to participate in the management of your patient. Dino Palacios MD, PhD, FAASM. Diplomat of [place] [employer], Sleep Medicine Board by [place] [employer] In Process Inspector of [facility] [place]
== END | disposition home or self-care (01) ==
LOC: SLEEP 10:30
PROVIDERS: ATTEND Internal Medicine
DX: G47.9 Sleep disorder, unspecified (principal); F32.A Depression, unspecified; F41.9 Anxiety disorder, unspecified; Z90.89 Acquired absence of other organs; Z90.49 Acquired absence of other specified parts of digestive tract